=== PATIENT | male | born 1950 | race Caucasian/White ===

== ENCOUNTER → 2018-09-09 19:23 | Outpatient (REF) | payer MEDICARE, OTHER, SELFPAY ==
[2018-09-09 20:59] LABS: Add Manual Diff / Slide Review YES; Hematocrit 52.3 % (41-53); Hemoglobin 17.4 g/dL (13.5-17.5); Mean Corpuscular HGB Conc 33.2 % (30-36); Mean Corpuscular Hemoglobin 31.5 PG (26-34); Mean Corpuscular Volume 94.9 fL (80-100); Platelet Count 163 X10^3/uL (150-400); Red Blood Cell Count 5.51 X10^6/uL (4.5-5.9); White Blood Cell Count 5.7 X10^3/uL (4.5-11.0)
[2018-09-09 21:09] LABS: Erythrocyte Sedimentation Rate 1 MM/HR (0-15)
[2018-09-09 21:42] LABS: Total Cells Counted 100
[2018-09-09 21:45] LABS: Neutrophils Absolute Manual 3591 /uL (3000-5900)
[2018-09-09 22:23] LABS: Alanine Aminotransferase 39 IU/L (21-72); Albumin 3.9 g/dL (3.5-5.0); Albumin Globulin Ratio 1.6 (1.0-2.8); Alkaline Phosphatase 75 U/L (38-126); Aspartate Aminotransferase 28 IU/L (17-59); BUN Creatinine Ratio 22.2 (6-22); Bilirubin Total 0.6 mg/dL (0.2-1.3); Blood Urea Nitrogen 20 mg/dL (9-20); Calcium 9.4 mg/dL (8.4-10.2); Carbon Dioxide 26 mmol/L (22-32); Chloride 104 mmol/L (98-107); Cholesterol 170 mg/dL (140-199); Estimated Glomerular Filt Rate > 60.0 mL/min (>60); Globulin 2.5 g/dL (1.7-4.1); Glucose 98 mg/dL (80-110); HDL Cholesterol 51 mg/dL (40-60); HEMOLYSIS < 15 (0-50); LDL Cholesterol Calculated 106 mg/dL (<100); Potassium 4.5 mmol/L (3.4-5.1); Sodium 139 mmol/L (137-145); Total Protein 6.4 g/dL (6.3-8.2); Triglycerides 64 mg/dL (35-150)
[2018-09-09 22:31] LABS: C-Reactive Protein Quant < 0.5 mg/dL (<1.0)
[2018-09-09 22:51] LABS: Prostate Specific Antigen 2.61 ng/mL (0.10-4.00)
== END ==
LOC: LAB 19:23
PROVIDERS: PCP Family Medicine Geriatric Medicine; Visit Provider Family Medicine Geriatric Medicine
DX: E29.1 Testicular hypofunction (principal); M19.90 Unspecified osteoarthritis, unspecified site; D40.0 Neoplasm of uncertain behavior of prostate; Z00.00 Encounter for general adult medical examination without abnormal findings; Z13.220 Encounter for screening for lipoid disorders
CPT/HCPCS: 36415; 80053; 80061; 84153; 84403; 85025; 85651; 86140